=== PATIENT | male | born 1975 ===

== ENCOUNTER 2017-07-20 15:40 | Observation (INO) | payer OTHER ==
[2017-07-20 15:40] VITALS: BMI 31.6
[2017-07-20] MEDS ORDERED: Sodium Chloride 0.9% 1,000 ML IV ONE (18:46)
[2017-07-20] MEDS ORDERED: Iohexol 240 (50 ml) PO STA (18:46)
--- NOTE | 2017-07-20 18:48 | C.PDOC ---
History Of Present Illness 41 year old male with PMHx of diverticular disease, kidney stones is sent to the ED from Dr. Francis's office for evaluation and a CT scan. Patient is c/o generalized abdominal pain for the last month. Patient states pain is constant and worse after eating associated with loss of appetite and multiple episodes of watery diarrhea. Patient states he now feels weak and dizzy. He was seen in the office by Dr. Francis who told him to come to the ED for a evaluation. Time Seen by Provider: 07/20/17 18:40 Chief Complaint (Nursing): Abdominal Pain History Per: Patient History/Exam Limitations: no limitations Onset/Duration Of Symptoms: Persistent Current Symptoms Are (Timing): Still Present Context: Food Location Of Pain/Discomfort: Diffuse Radiation Of Pain To:: None Quality Of Discomfort: "Pain" Associated Symptoms: Diarrhea, Loss Of Appetite Exacerbating Factors: None Alleviating Factors: None Recent travel outside of the [place]: No Additional History Per: Patient Past Medical History Reviewed: Historical Data, Nursing Documentation, Vital Signs Vital Signs: Last Vital Signs Temp 98.2 F 07/20/17 16:18 Pulse 77 07/20/17 16:18 Resp 20 07/20/17 16:18 BP 166/88 H 07/20/17 16:18 Pulse Ox 98 07/20/17 21:45 - Medical History PMH: Anxiety, Colonic Polyps, Depression, Diverticulitis, Gastritis, HTN, Hypercholesterolemia, Kidney Stones, Migraine, Chronic Kidney Disease Surgical History: Endoscopy - [facility] Procedures C.A.T. SCAN OF ABDOMEN (05/05/13) CYSTOSCOPY NEC (07/16/14) DIVISION OF ANAL SPHINCTER, PERCUTANEOUS APPROACH (07/31/15) ENDOSC POLYPECTOMY OF LG INTEST (09/11/14) ESOPHAGOGASTRODUODENOSCOPY [EGD] W/CLOSED BIOPSY (10/01/14) EXCISION OF HEMORRHOIDAL PLEXUS, PERCUTANEOUS APPROACH (07/31/15) PERCUTANEOUS ABDOMINAL DRAINAGE (05/05/13) REMOV URETERAL DRAIN (07/16/14) RETROGRADE PYELOGRAM (05/14/14) TU REMOV URETER OBSTRUCT (11/05/14) ULTRASON FRAGMENT-STONE (03/11/15) URETERAL CATHETERIZATION (03/11/15) Family History: States: Unknown Family Hx - Social History Hx Tobacco Use: No Hx Alcohol Use: No Hx Substance Use: No - Immunization History Hx Tetanus Toxoid Vaccination: Yes Hx Influenza Vaccination: Yes Hx Pneumococcal Vaccination: Yes Review Of Systems Constitutional: Positive for: Weakness. Negative for: Fever, Chills Cardiovascular: Negative for: Chest Pain, Palpitations Respiratory: Negative for: Cough, Shortness of Breath Gastrointestinal: Positive for: Abdominal Pain, Diarrhea. Negative for: Constipation Genitourinary: Negative for: Dysuria, Hematuria Musculoskeletal: Negative for: Back Pain Skin: Negative for: Rash Neurological: Positive for: Dizziness. Negative for: Weakness, Numbness, Headache Physical Exam - Physical Exam Appears: Non-toxic, No Acute Distress Skin: Normal Color, Warm, Dry Head: Atraumatic, Normacephalic Eye(s): bilateral: Normal Inspection Nose: No Discharge, No Deformity Oral Mucosa: Moist Chest: Symmetrical Cardiovascular: Rhythm Regular, No Murmur Respiratory: Normal Breath Sounds, No Rales, No Rhonchi, No Wheezing Gastrointestinal/Abdominal: Bowel Sounds (hyperactive), Soft, Tenderness ( diffusele), No Guarding, No Rebound Extremity: Normal ROM, No Pedal Edema, No Calf Tenderness, No Deformity, No Swelling Neurological/Psych: Oriented x3, Normal Speech, Normal Cognition Gait: Steady ED Course And Treatment - Laboratory Results Result Diagrams: 07/20/17 19:02 07/20/17 19:02 Lab Interpretation: No Acute Changes (HCO3 31, Hgb 18.4) O2 Sat by Pulse Oximetry: 98 (On RA) Pulse Ox Interpretation: Normal - CT Scan/US Abdomen and pelvis Other Rad Studies (CT/US): Read By Radiologist, Radiology Report Reviewed CT/US Interpretation: IMPRESSION: 1. No evidence of left hydronephrosis, renal , or definite ureteral calculus. 2. Sigmoid diverticulosis, without evidence of acute diverticulitis. Reevaluation Time: 21:42 - Physician Consult Information Time Consulting Physician Contacted: 21:42 Physician Contacted: Vane Francis Outcome Of Conversation: Patient to be admitted to Dr Fernandez for evaluation of abdominal pain with diarrhea. Medical Decision Making Medical Decision Making: Impression: abdominal pain, diarrhea Plan: * CT abd/pelvis * Labs * Morphine 2 mg IVP * Omnipaque 50 ml PO * IV fluids * UA Disposition - Disposition Disposition: HOSPITALIZED Disposition Time: 22:22 Condition: STABLE - POA Present On Arrival: None - Clinical Impression Clinical Impression: Abdominal pain, Diarrhea - Scribe Statement The provider has reviewed the documentation as recorded by the Scribe Deshaun Thapa All medical record entries made by the Scribe were at my direction and personally dictated by me. I have reviewed the chart and agree that the record accurately reflects my personal performance of the history, physical exam, medical decision making, and the department course for this patient. I have also personally directed, reviewed, and agree with the discharge instructions and disposition.
[2017-07-20 19:09] LABS: BASO # 0.1 K/uL (0.0-0.2); BASO % 0.5 % (0.0-2.0); EOS % 0.3 % (0.0-4.0); HEMOGLOBIN 18.4 g/dL (12.0-18.0); LYMPH # 2.3 K/uL (1.0-4.3); LYMPH % 21.5 % (20.0-40.0); MEAN CELL VOLUME 83.7 fL (80.0-94.0); MEAN CORPUSCULAR HEMOGLOBIN 28.9 pg (27.0-31.0); MEAN CORPUSCULAR HGB CONC 34.5 g/dL (33.0-37.0); MEAN PLATELET VOLUME 8.1 fL (7.2-11.7); MONO # 0.6 K/uL (0.0-0.8); MONO % 5.9 % (0.0-10.0); NEUT # 7.6 K/uL (1.8-7.0); NEUT % 71.8 % (50.0-75.0); NRBC % 0.3 % (0.0-2.0); RBC 6.38 Mil/uL (4.40-5.90); RED CELL DISTRIBUTION WIDTH 13.7 % (11.5-14.5); WHITE BLOOD COUNT 10.6 K/uL (4.8-10.8)
[2017-07-20 19:14] LABS: SQUAMOUS EPITHIAL 5 /hpf (0-5); URINE BACTERIA RARE (<OCC); URINE BILIRUBIN NEGATIVE (NEGATIVE); URINE BLOOD NEGATIVE (NEGATIVE); URINE CLARITY Clear (Clear); URINE COLOR Yellow (YELLOW); URINE GLUCOSE (UA) NORMAL (Normal); URINE LEUKOCYTE ESTERASE NEG Leu/uL (Negative); URINE NITRATE NEGATIVE (NEGATIVE); URINE PROTEIN NEGATIVE (NEGATIVE); URINE UROBILINOGEN NORMAL mg/dL (0.2-1.0)
[2017-07-20] MEDS ORDERED: Morphine 4 MG/ML VIAL ONE (19:14)
[2017-07-20] MEDS ORDERED: Iohexol 240 (50 ml) ONE (19:15)
[2017-07-20 19:34] LABS: ALB/GLOB RATIO 1.2 (1.0-2.1); ALBUMIN 4.4 g/dL (3.5-5.0); ALT/SGPT 62 U/L (21-72); AST/SGOT 40 U/L (17-59); BLOOD UREA NITROGEN 15 mg/dL (9-20); CALCIUM 9.1 mg/dl (8.6-10.4); GFR AFRICAN-AMERICAN > 60; GFR NON-AFRICAN AMERICAN > 60; LIPASE 89 U/L (23-300)
[2017-07-20] MEDS ORDERED: Iohexol 300 100 ML IJ ONE (20:21)
--- NOTE | 2017-07-20 21:26 | CT ---
EXAM: CT Abdomen and Pelvis With Intravenous Contrast CLINICAL HISTORY: 41 years old, male; Pain; Abdominal pain; Flank; Left lower quadrant (llq); Additional info: Abd pain TECHNIQUE: Axial computed tomography images of the abdomen and pelvis with intravenous contrast. All CT scans at this facility use one or more dose reduction techniques, viz.: automated exposure control; ma/kV adjustment per patient size (including targeted exams where dose is matched to indication; i.e. head); or iterative reconstruction technique. Coronal and sagittal reformatted images were created and reviewed. CONTRAST: 100 mL of omnipaque 300 administered intravenously. COMPARISON: No relevant prior studies available. FINDINGS: Lower thorax: No acute findings. ABDOMEN: Liver: Unremarkable. No mass. Gallbladder and bile ducts: Unremarkable. No calcified stones. No ductal dilation. Pancreas: Unremarkable. No mass. No ductal dilation. Spleen: Unremarkable. No splenomegaly. Adrenals: Unremarkable. No mass. Kidneys and ureters: 2.4 CM right renal cyst. 1.6 CM left renal cyst. No hydronephrosis. Stomach and bowel: Sigmoid diverticulosis. Appendix: No findings to suggest acute appendicitis. PELVIS: Bladder: Unremarkable. No mass. Reproductive: Unremarkable as visualized. ABDOMEN and PELVIS: Intraperitoneal space: Unremarkable. No free air. No significant fluid collection. Bones/joints: No acute fracture. No dislocation. Soft tissues: Unremarkable. Vasculature: Unremarkable. No abdominal aortic aneurysm. Lymph nodes: Unremarkable. No enlarged lymph nodes. IMPRESSION: 1. No evidence of left hydronephrosis, renal, or definite ureteral calculus. 2. Sigmoid diverticulosis, without evidence of acute diverticulitis. 3. Remainder of findings as above
[2017-07-21] MEDS ORDERED: Magnesium Citrate Oral SOL (300 ml) PO PRN (03:14)
[2017-07-21 08:18] VITALS: RESP 18
[2017-07-21] MEDS ORDERED: Home Med 1 UNIT (Meloxicam [Mobic] 15 MG) PO SCH ×2 (10:00)
[2017-07-21 11:52] VITALS: O2SAT 98
--- NOTE | 2017-07-21 13:58 | CP.PCM.PN ---
Subjective - Date & Time of Evaluation Date of Evaluation: 07/21/17 Time of Evaluation: 07:00 - Subjective Subjective: PGY [address] Fernandez: Patient was seen and examined at bedside this morning. Patient was seen in Dr. Francis's office yesterday and was sent to the emergency room complaining of abdominal pain which has been present for one month. Patient states he has a history of chrons disease but has never taken any meds for this despite being seen by GI doctors. Last endoscopy was done at [facility] in 2016 biopsies were negative per EMR. Patient states pain is constant and worse after eating associated with loss of appetite and multiple episodes of watery diarrhea for the last 3 days. He denies blood in the stool Patient states he now feels weak and dizzy. Patient denies N/V and is able to tolerate PO intake. He states that he feels like something is wrong in his abdomen and knows "something is there". Patient with long history of renal stones managed by Dr. Simon. Patient has had many cat scans recently. He denies other complaints such as fever/chills , chest pain, shortness of breath, palpitations, numbness/tingling, pain in the extremities. Objective - Vital Signs/Intake and Output Vital Signs (last 24 hours): Temp Pulse Resp BP Pulse Ox 98.4 F 65 18 137/83 98 07/21/17 11:51 07/21/17 11:51 07/21/17 11:51 07/21/17 11:51 07/21/17 11:51 - Medications Medications: Current Medications Amlodipine Besylate (Norvasc) 5 mg PO DAILY [facility] Last Admin: 07/21/17 11:09 Dose: 5 mg Citalopram Hydrobromide (Celexa) 20 mg PO DAILY [facility] Last Admin: 07/21/17 11:08 Dose: 20 mg Docusate Sodium (Colace) 100 mg PO DAILY PRN PRN Reason: FOR CONSTIPATION Heparin Sodium (Porcine) (Heparin) 5,000 units SC Q12 [facility] Last Admin: 07/21/17 11:10 Dose: 5,000 units Hydrochlorothiazide (Hydrodiuril) 25 mg PO DAILY [facility] Last Admin: 07/21/17 11:08 Dose: 25 mg Hydromorphone HCl (Dilaudid) 1 mg IVP Q6 PRN PRN Reason: Pain Last Admin: 07/21/17 08:15 Dose: 1 mg Lisinopril (Zestril) 10 mg PO DAILY [facility] Last Admin: 07/21/17 11:09 Dose: 10 mg Loratadine (Claritin) 10 mg PO DAILY [facility] Last Admin: 07/21/17 11:08 Dose: 10 mg Lorazepam (Ativan) 0.5 mg PO DAILY [facility] Magnesium Citrate (Citrate Of Mag) 300 ml PO ONCE PRN PRN Reason: Constipation Pantoprazole Sodium (Protonix Inj) 40 mg IVP DAILY [facility] Last Admin: 07/21/17 11:00 Dose: 40 mg Trazodone HCl (Desyrel) 100 mg PO HS [facility] - Labs Labs: 07/20/17 19:02 07/20/17 19:02 - Constitutional Appears: Non-toxic, No Acute Distress - Head Exam Head Exam: ATRAUMATIC, NORMAL INSPECTION - Eye Exam Eye Exam: EOMI, PERRL Pupil Exam: NORMAL ACCOMODATION - ENT Exam ENT Exam: Mucous Membranes Moist - Respiratory Exam Respiratory Exam: Clear to Ausculation Bilateral, NORMAL BREATHING PATTERN. absent: Respiratory Distress - Cardiovascular Exam Cardiovascular Exam: REGULAR RHYTHM, +S1, +S2 - GI/Abdominal Exam GI & Abdominal Exam: Guarding, Soft, Tenderness (worse LLQ, LUQ), Hypoactive Bowel Sounds. absent: Distended, Firm - Extremities Exam Extremities Exam: Normal Inspection. absent: Calf Tenderness, Pedal Edema - Back Exam Back Exam: NORMAL INSPECTION. absent: CVA tenderness (L), CVA tenderness (R), paraspinal tenderness - Neurological Exam Neurological Exam: Alert, Awake, CN II-XII Intact, Oriented x3 Neuro motor strength exam: Left Upper Extremity: 5, Right Upper Extremity: 5, Left Lower Extremity: 5, Right Lower Extremity: 5 - Psychiatric Exam Psychiatric exam: Anxious, Normal Affect, Normal Mood - Skin Skin Exam: Dry, Intact, Normal Color Assessment and Plan - Assessment and Plan (Free Text) Assessment: CT scan was negative for acute disease or evidence of diverticulitis (only showed evidence of diverticulosis). Patient was in Dr. Francis's office yesterday but did not mention hx Chrons disease. Patient does not have a white count and is afebrile. Will try outpatient antibiotics. Patient was monitored in the ED for almost 24 hours. All home medications were continued. Patient is stable for discharge home. Patient is to follow up with his primary care doctor within one week of discharge. Patient is to follow up with gastroenterology, Dr. Branch. He is to call his office and make a follow up appointment. Patient is to resume all of his home medications and take Flagyl 500mg by mouth three times a day for 10 days (sent to the patients preferred pharmacy). He is to return to the emergency room if symptoms persist, worsen, or if he develops a fever. All instructions explained to the patient.
[2017-07-21 16:22] LABS: ALB/GLOB RATIO 1.2 (1.0-2.1); ALBUMIN 4.1 g/dL (3.5-5.0); ALT/SGPT 53 U/L (21-72); AST/SGOT 36 U/L (17-59); BLOOD UREA NITROGEN 9 mg/dL (9-20); CALCIUM 9.2 mg/dl (8.6-10.4); GFR AFRICAN-AMERICAN > 60; GFR NON-AFRICAN AMERICAN > 60; MAGNESIUM 1.8 mg/dL (1.6-2.3)
[2017-07-21 16:36] VITALS: BP 119/72; PULSE 82; TEMP 98.4
--- NOTE | 2017-07-21 23:05 | CON ---
DATE: 07/21/[address] Brennan [address] Dr. Elina Fernandez MD. HISTORY OF PRESENT ILLNESS: I was called for a GI consultation by the admitting medical team. The patient is seen and fully examined in the emergency room on 07/21/2017. The entire chart is reviewed including but not limited to the most recent lab and radiology study results, current and the previous medication list, current and the previous medical events, allergy to medication list as well as all the available current and the previous medical records. Case discussed at length with the admitting medical team as well as the ER staff. This is a 41-year-old male who was admitted to the hospital through the emergency room after being seen in my office yesterday with a complaint of severe abdominal pain, change of bowel movement habits, poor oral intake. Had been seen recently at [facility]. Results are not clear of such visits and the patient, according to his statement, had colonoscopy few years ago, the outcome is unclear for him at that time. However, he reported to the emergency room he might have Crohn's disease, which he did not report to me before. It has to be mentioned that this patient was seen only once in my office as a new patient. No nausea or vomiting. The patient reported episode of diarrhea and loss of appetite, but no chest pain, shortness of breath, chills, fever or active bleeding. PAST MEDICAL HISTORY: Including, 1. Depression. 2. Severe anxiety syndrome. 3. Reported diverticulosis with questionable colon polyp by history. 4. Hypertension with hyperlipidemia. 5. Renal stone. 6. Migraine headache. FAMILY HISTORY: Unknown. SOCIAL HISTORY: Denied any recent history of cigarette smoking or alcohol intake. CURRENT MEDICATIONS: Medical lists were reviewed. ALLERGY TO MEDICATION: UNCLEAR. LABORATORY DATA: After being admitted to the hospital, the patient was found to have increased hemoglobin to 18.4 with hematocrit 53.4, most likely secondary to hemoconcentration with blood glucose level slightly elevated to 114 and increased CO2 content 31 indicative of respiratory alkalosis. CAT scan of the abdomen and pelvis was indicative of sigmoid diverticulosis. PHYSICAL EXAMINATION: GENERAL: A 41-year-old male. Awake, alert, oriented. Complaining of severe left-sided abdominal pain. VITAL SIGNS: Afebrile with pulse of 74, respiratory rate 20 to 22 with blood pressure 160/78. HEENT: Showed mildly pale dry oral mucous membrane. Nonicteric sclerae. LYMPH NODES: No lymphadenitis or lymphadenopathy. LUNGS: Few scattered crepitation with decreased air entry at bases. HEART: Positive S1 and S2. ABDOMEN: Soft with mild distention with severe left-sided tenderness. No mass or organomegaly. No rebound tenderness or guarding. RECTAL: The patient refused. EXTREMITIES: Without edema, clubbing or cyanosis. NEUROLOGIC: No reported new neurological deficits, sensory or motor. No focal deficits reported. VASCULAR: Peripheral pulses are present bilaterally. IMPRESSION: 1. Diverticulosis with probable early stage of diverticulitis. 2. To rule out recurrent renal stone. 3. Multiple past medical history as indicated above. SUGGESTION: 1. Agree with your plan. 2. IV antibiotics. Proton pump inhibitors. Urology consult. 3. Cancer markers including CEA. 4. Clear liquid diet. 5. tab p.o. 6. Bentyl p.o. 7. Further recommendation to follow. This case was discussed at length with the ER MD and admitting medical staff. We will follow up closely with you. Thank you for letting me participate in your patient's case and management. 8. The patient may need colonoscopy when he is more stable clinically that could be done as outpatient. Vane Brennan MD
== END 2017-07-21 16:30 | disposition home or self-care (01) ==
LOC: C.ER 15:40 → C.9E 22:23 → C.6T 07-21 15:24 → C.9E 07-21 15:50
PROVIDERS: ADMIT Internal Medicine Pulmonary Disease; ATTEND Internal Medicine Pulmonary Disease
DX: K57.92 Diverticulitis of intestine, part unspecified, without perforation or abscess without bleeding (principal); R10.9 Unspecified abdominal pain; P78.3 Noninfective neonatal diarrhea; I12.9 Hypertensive chronic kidney disease with stage 1 through stage 4 chronic kidney disease, or unspecified chronic kidney disease; N18.9 Chronic kidney disease, unspecified; E78.5 Hyperlipidemia, unspecified
CPT/HCPCS: 74177; 80053; 81001; 83690; 83735; 84100; 85025; 96372; 96374; 96376; C9113; G0378; J1170; J1644; J2270; J7040; Q9966; Q9967

== ENCOUNTER 2017-08-15 09:25 | Day surgery (SDC) | payer OTHER ==
[2017-08-15 10:13] VITALS: BMI 29.9
[2017-08-15] MEDS ORDERED: Midazolam 2 MG/2 ML VIAL ONE (11:54)
[2017-08-15] MEDS ORDERED: Propofol 10 mg/ml Inj (20 ML) ONE (11:54)
[2017-08-15 12:27] VITALS: TEMP 98.6
[2017-08-15 12:42] VITALS: O2SAT 100
[2017-08-15 13:27] VITALS: BP 121/70; PULSE 76; RESP 17
== END 2017-08-15 13:20 | disposition home or self-care (01) ==
LOC: C.ENDO 09:25
PROVIDERS: ATTEND Internal Medicine Gastroenterology
DX: B19.20 Unspecified viral hepatitis C without hepatic coma (principal); K57.30 Diverticulosis of large intestine without perforation or abscess without bleeding; D12.2 Benign neoplasm of ascending colon
CPT/HCPCS: 45380; 88305; J2250; J2704